=== PATIENT | male | born 1995 | race Asian ===

== ENCOUNTER → 2017-02-02 | Outpatient (CLI) | payer OTHER | LOC: COL.RAD 15:32 | DX: N50.89 Other specified disorders of the male genital organs (principal) ==

== ENCOUNTER 2017-10-02 02:24 | Emergency (ER) | payer OTHER ==
[~2017-10-02] VITALS: Ht 170.2 cm; Wt 99.0 kg
[2017-10-02 02:27] VITALS: TEMP 97.8
[2017-10-02 02:59] LABS: BASO % 0.4 % (0.0-2.0); EOS # 0.1 (0.0-0.7); EOS % 1.8 % (0-4.0); GRAN # 2.9 (1.4-6.5); GRAN % 43.8 % (42.2-75.2); HEMATOCRIT 39.8 % (42.0-52.0); HEMOGLOBIN 14.2 g/dl (13.5-18.0); LYMPH % 44.1 % (20.0-51.0); MEAN CELL VOLUME 83 fl (80.0-100.0); MEAN CORPUSCULAR HEMOGLOBIN 30 pg (27.0-31.0); MEAN CORPUSCULAR HGB CONC 36 g/dl (33.0-37.0); MEAN PLATELET VOLUME 9.2 fl (7.4-10.4); MONO # 0.7 (0.1-0.6); MONO % 9.8 % (1.7-9.3); PLATELET COUNT 266 K/mm3 (130-400); RED BLOOD COUNT 4.77 M/mm3 (4.20-5.60); REDCELL DISTRIBUTION WIDTH-CV 12.5 % (11.5-14.5)
[2017-10-02 03:13] LABS: BILIRUBIN,TOTAL 0.4 mg/dL (0.0-1.0); C-REACTIVE PROTEIN 0.7 mg/dL (0.0-0.9); CALCIUM 9.3 mg/dL (8.4-10.2); CREATININE, serum 0.94 mg/dL (0.66-1.25); TOTAL PROTEIN 7.3 gm/dL (6.4-8.2)
[2017-10-02] MEDS ORDERED: MEDROL 4MG DOSPA4 MG PO (03:22)
[2017-10-02 03:35] VITALS: BP 118/80; PULSE 73
== END 2017-10-02 03:34 | disposition home or self-care (01) ==
LOC: COL.ER 02:24
PROVIDERS: Emergency Medicine
DX: R10.11 Right upper quadrant pain (principal); R07.81 Pleurodynia

== ENCOUNTER 2018-09-20 06:48 | Emergency (ER) | payer OTHER ==
[~2018-09-20 06:48] MED LIST: MEDROL 4MG DOSPA4 MG PO
[2018-09-20 07:08] LABS: COLLECTION METHOD CLEAN CATCH
[2018-09-20 07:17] LABS: MUCOUS Present /lpf; PH 6 (5-8); SQUAMOUS EPITHELIAL None Seen /hpf; URINE APPEARANCE Clear; URINE BACTERIA None Seen /hpf; URINE BILIRUBIN Negative (NEGATIVE); URINE BLOOD 3+ (NEGATIVE); URINE COLOR Yellow; URINE GLUCOSE Negative (NEGATIVE); URINE KETONE Negative (NEGATIVE); URINE LEUKOCYTE ESTERASE Negative (NEGATIVE); URINE NITRATE Negative (NEGATIVE); URINE PROTEIN(semi-quant) Negative (NEGATIVE); URINE RBC >50 /hpf; URINE UROBILINOGEN Negative (NEGATIVE)
[2018-09-20 07:22] LABS: BASO % 0.6 % (0.0-2.0); EOS # 0.1 (0.0-0.7); EOS % 1.8 % (0-4.0); GRAN # 1.7 (1.4-6.5); GRAN % 34.1 % (42.2-75.2); HEMATOCRIT 46.5 % (42.0-52.0); LYMPH # 2.5 (1.2-3.4); LYMPH % 51.1 % (20.0-51.0); MEAN CELL VOLUME 86 fl (80.0-100.0); MEAN CORPUSCULAR HEMOGLOBIN 30 pg (27.0-31.0); MEAN CORPUSCULAR HGB CONC 34 g/dl (33.0-37.0); MEAN PLATELET VOLUME 9.3 fl (7.4-10.4); MONO # 0.6 (0.1-0.6); MONO % 12.2 % (1.7-9.3); PLATELET COUNT 294 K/mm3 (130-400); RED BLOOD COUNT 5.43 M/mm3 (4.20-5.60)
[2018-09-20 07:30] LABS: ALBUMIN 4.3 gm/dL (3.5-5.0); BILIRUBIN,TOTAL 0.7 mg/dL (0.0-1.0); CALCIUM 9.8 mg/dL (8.4-10.2); CREATININE, serum 0.95 (0.66-1.25); TOTAL PROTEIN 7.5 gm/dL (6.4-8.2)
[2018-09-20] MEDS ORDERED: ZOFRAN 4MG T4 MG/TAB PO (08:56)
[2018-09-20] MEDS ORDERED: NORCO 325 MG-51 TAB PO (08:56)
[2018-09-20] MEDS ORDERED: FLOMAX 0.40.4 MG/CAP PO (08:56)
[2018-09-20 09:15] VITALS: BP 127/76; PULSE 69
== END 2018-09-20 09:15 | disposition home or self-care (01) ==
LOC: COL.ER 06:48
PROVIDERS: Emergency Medicine
DX: N20.1 Calculus of ureter (principal); N23 Unspecified renal colic
CPT/HCPCS: J1170; J1885; J2405; J7030

== ENCOUNTER 2018-10-12 21:56 | Emergency (ER) | payer OTHER ==
[~2018-10-12] VITALS: Ht 177 cm; Wt 97.7 kg
[~2018-10-12 21:56] MED LIST changes: +FLOMAX 0.40.4 MG/CAP PO; +NORCO 325 MG-51 TAB PO; +ZOFRAN 4MG T4 MG/TAB PO
[2018-10-12 22:18] VITALS: BP 134/83; TEMP 98
[2018-10-12 23:29] LABS: BASO % 0.1 % (0.0-2.0); EOS % 0.1 % (0-4.0); GRAN # 6.2 (1.4-6.5); GRAN % 82.9 % (42.2-75.2); HEMATOCRIT 39.5 % (42.0-52.0); HEMOGLOBIN 13.9 g/dl (13.5-18.0); LYMPH # 0.7 (1.2-3.4); LYMPH % 9.6 % (20.0-51.0); MEAN CELL VOLUME 84 fl (80.0-100.0); MEAN CORPUSCULAR HEMOGLOBIN 29 pg (27.0-31.0); MEAN CORPUSCULAR HGB CONC 35 g/dl (33.0-37.0); MEAN PLATELET VOLUME 9.1 fl (7.4-10.4); MONO # 0.5 (0.1-0.6); PLATELET COUNT 259 K/mm3 (130-400); RED BLOOD COUNT 4.72 M/mm3 (4.20-5.60); REDCELL DISTRIBUTION WIDTH-CV 11.9 % (11.5-14.5)
[2018-10-12 23:39] LABS: BILIRUBIN,TOTAL 0.9 mg/dL (0.0-1.0); CREATININE, serum 1.03 (0.66-1.25); POTASSIUM 4.2 mmol/L (3.4-5.0)
[2018-10-13 00:16] LABS: COLLECTION METHOD CLEAN CATCH
[2018-10-13 00:26] LABS: MUCOUS Present /lpf; PH 7 (5-8); SQUAMOUS EPITHELIAL 0-2 /hpf; URINE APPEARANCE Hazy; URINE BACTERIA None Seen /hpf; URINE BILIRUBIN Negative (NEGATIVE); URINE BLOOD 3+ (NEGATIVE); URINE COLOR Yellow; URINE GLUCOSE Negative (NEGATIVE); URINE KETONE 2+ (NEGATIVE); URINE LEUKOCYTE ESTERASE Negative (NEGATIVE); URINE NITRATE Negative (NEGATIVE); URINE PROTEIN(semi-quant) 1+ (NEGATIVE); URINE RBC >50 /hpf; URINE UROBILINOGEN Negative (NEGATIVE)
[2018-10-13] MEDS ORDERED: NORCO 325 MG-51 TAB PO (00:54)
[2018-10-13] MEDS ORDERED: ZOFRAN ODT4 MG PO (01:22)
[2018-10-13 02:11] VITALS: PULSE 79
== END 2018-10-13 02:12 | disposition home or self-care (01) ==
LOC: COL.ER 21:56
PROVIDERS: Nurse Practitioner
DX: R10.9 Unspecified abdominal pain (principal); R10.2 Pelvic and perineal pain; Z87.442 Personal history of urinary calculi; F17.290 Nicotine dependence, other tobacco product, uncomplicated
CPT/HCPCS: J1170; J2405; J7030